=== PATIENT | female | born 1940 | race African-American/Black ===

== ENCOUNTER → 2016-10-11 | Outpatient (CLI) | payer MEDICARE, OTHER ==
[~2016-10-11] MED LIST: AMLODIPINE BESY10 MG PO; ASPIR-LOW81 MG PO; BENAZEPRIL HCL20 MG PO; BENAZEPRIL-HCT1 EAC1 PO; CALCIUM500 M3 PO; COLACE100 MG ORAL; DEXILANT PO; DEXILANT60 MG ORAL; DRY MOUTH PO; FENTANYL1 EACH TDERMAL; GABAPENTIN300 MG PO; GABAPENTIN600 MG ORAL; GLUCOPHAGE500 MG PO; JANUVIA25 MG ORAL; LACTULOSE20 GM/301 ORAL; LANTUS5 UNITS SUBQ; LINZESS145 MCG PO; LIPITOR20 MG ORAL; LOVASTATIN10 MG PO; MELOXICAM15 MG PO; METFORMIN HCL500 M1 ORAL; MIRALAX17 G2 ORAL; MYRBETRIQ25 MG PO; NORCO 10-325 T1 EACH PO; NOVOLOG100 UNIT/3 SUBQ; OMEPRAZOLE20 M2 ORAL; OMEPRAZOLE40 M1 ORAL; OS-CAL 500+D C1 EAC1 PO; OSTERA TABLET1 EACH PO; PRILOSEC40 MG PO; TRULICITY0.75 MG/0. SQ; URINARY MED; VITAMIN D22000 UNIT PO; VOLTAREN TOP; ZOFRAN4 MG ORAL
[2016-10-11 11:03] VITALS: BP 116/68
--- NOTE | 2016-10-11 15:36 | GI Progress Note ---
Assessment/Plan Problems: (1) Encounter for diagnostic endoscopy ICD Codes: Z01.818 - Encounter for other preprocedural examination SNOMED: 815501177, 994362074 (2) Colon polyps ICD Codes: K63.5 - Colon polyps SNOMED: 14012926 (3) GERD (gastroesophageal reflux disease) ICD Codes: K21.9 - Gastro-esophageal reflux disease without esophagitis SNOMED: 694899136 (4) Colon cancer ICD Codes: C18.9 - Malignant neoplasm of colon, unspecified SNOMED: 613344749 (5) Constipation ICD Codes: K59.00 - Constipation SNOMED: 43982413 (6) Biliary and pancreatic ductal dilatation (7) Invasive adenocarcinoma of ascending colon polyp Status: stable Status Narrative Seen with Dr. Worthington. Assessment/Plan EUS scheduled for 10/14/16. - NPO @ [place] day prior procedure acknowledged by patient. refill zofran cont omeprazole BID Subjective Gastrointestinal/Abdominal: Reports: abdominal pain, nausea Subjective GERD, stomach is sick all the time Objective Last 24 Hour Vital Signs Date Time Temp Pulse Resp B/P Pulse Ox O2 Delivery O2 Flow Rate FiO2 10/11/16 11:03 97.7 77 16 116/68 99 Weight (Pounds): 245 General Appearance: no apparent distress, alert, obese Cardiovascular: normal rate Respiratory/Chest: normal breath sounds, no respiratory distress Abdominal Exam: normal bowel sounds, non tender, soft Extremities: normal range of motion Objective DATE OF PROCEDURE: 07/04/2016 SURGEON: Ishaan Worthington M.D. INDICATION: Colon cancer followup. SUMMARY OF FINDINGS: 1. Four colonic polyps removed. 2. Diverticulosis. 3. Small internal hemorrhoids. RECOMMENDATIONS: Follow biopsy results. We recommend repeat colonoscopy. If it has not been five years yet then the patient would need another colonoscopy next year. If it has already been five years, would not need another colonoscopy in two years. Pathology >> no dysplasia Adriana Malin N.P. Oct 11, 2016 15:36
== END | disposition home or self-care (01) ==
LOC: PAN 10:38
DX: Z01.818 Encounter for other preprocedural examination (principal); K63.5 Polyp of colon; K21.9 Gastro-esophageal reflux disease without esophagitis; K59.00 Constipation, unspecified; C18.2 Malignant neoplasm of ascending colon; K57.90 Diverticulosis of intestine, part unspecified, without perforation or abscess without bleeding; K64.8 Other hemorrhoids
CPT/HCPCS: 99211

== ENCOUNTER → 2016-10-14 | Day surgery (SDC) | payer MEDICARE, OTHER ==
[2016-10-14] VITALS (8 sets, daily range): BP systolic 111–124; BP diastolic 59–67
[~2016-10-14] VITALS: Ht 175.3 cm; Wt 108.9 kg
[~2016-10-14] MED LIST changes: +Hydromorphone 0.5mg/0.5ml inj IVP PRN; +Lidocaine 1% MPF 10mg/ml 5ml ONE; +Norco 5mg/325mg tab ORAL PRN; +Propofol 10mg/ml 20ml IV ONE; +fentaNYL 100 mcg/2 mL IV PRN
--- NOTE | 2016-10-14 09:18 | Anethesia Preoperative Eval ---
Anesthesia Pre-op PMH/ROS General Date of Evaluation: Oct 14, 2016 Time of Evaluation: 09:00 Anesthesiologist: Tanya ASA Score: ASA 3 Mallampati Score Class I : Soft palate, uvula, fauces, pillars visible Class II: Soft palate, uvula, fauces visible Class III: Soft palate, base of uvula visible Class IV: Only hard plate visible Mallampati Classification: Class III Surgeon: Elin Diagnosis: PUD Surgical Procedure: EGD Family History: no anesthesia problems Allergies: Coded Allergies: ALENDRONATE SODIUM (Verified Allergy, Intermediate, "HEART PALPITATION", ) AMOXICILLIN (Unverified Allergy, Unknown, 12/02/15) NSAIDS (NON-STEROIDAL ANTI-INFLAMMA (Verified Allergy, Unknown, "HIVES", 06/11/14) SIMVASTATIN (Unverified Allergy, Unknown, 12/02/15) AMPICILLIN (Verified Adverse Reaction, Intermediate, "GETS YEAST INFECTION ", 09/05/12) Medications: see eMAR Past Medical History Cardiovascular: Reports: HTN Pulmonary: Denies: COPD, KAVITA, asthma, other Gastrointestinal/Genitourinary: Reports: GERD Neurologic/Psychiatric: Denies: CVA, TIA, dementia, depression/anxiety, other Endocrine: Reports: DM HEENT: Denies: [place] (L), [place] (R), cataract (L), cataract (R), glaucoma, other Hematology/Immune: Denies: DVT, anemia, bleeding disorder, other Musculoskeletal/Integumentary: Reports: DJD Anesthesia Pre-op Phys. Exam Physician Exam Last Vital Signs Date Time Temp Pulse Resp B/P Pulse Ox O2 Delivery O2 Flow Rate FiO2 10/14/16 07:17 98.2 78 20 111/63 99 Room Air Constitutional: NAD Neurologic: CN 2-12 intact Cardiovascular: RRR Airway Exam Mallampati Score: Class III ABISAI SHERWOOD M.D. Oct 14, 2016 09:18
--- NOTE | 2016-10-14 09:34 | Pre-Procedure Note/Attestation ---
Pre-Procedure Note/Attestation Complete Prior to Procedure Planned Procedure: not applicable Procedure Narrative: eus Indications for Procedure Pre-Operative Diagnosis: dilated CBD Attestation I attest that I discussed the nature of the procedure; its benefits; risks and complications; and alternatives (and the risks and benefits of such alternatives ), prior to the procedure, with the patient (or the patient's legal telephone service representative). I attest that, if there was a reasonable possibility of needing a blood transfusion, the patient (or the patient's legal telephone service representative) was given the [facility] standardized written summary, pursuant to the Earle Falguni Blood Safety Act ([place] Health and Safety Code # 1645, as amended). I attest that I re-evaluated the patient just prior to the surgery and that there has been no change in the patient's H&P, except as documented below: TERRA ANTHONY Oct 14, 2016 09:34
--- NOTE | 2016-10-14 09:35 | Short Stay Surgery H&P ---
History of Present Illness History of Present Illness Chief Complaint dilated CBD HPI Chago Avalos is a 76 year old female who was admitted on for Nausea,Abdominal Pain Patient History Allergies: Coded Allergies: ALENDRONATE SODIUM (Verified Allergy, Intermediate, "HEART PALPITATION", ) AMOXICILLIN (Unverified Allergy, Unknown, 12/02/15) NSAIDS (NON-STEROIDAL ANTI-INFLAMMA (Verified Allergy, Unknown, "HIVES", 06/11/14) SIMVASTATIN (Unverified Allergy, Unknown, 12/02/15) AMPICILLIN (Verified Adverse Reaction, Intermediate, "GETS YEAST INFECTION ", 09/05/12) PAST MEDICAL HISTORY: (1) Invasive adenocarcinoma of ascending colon polyp (2) Biliary and pancreatic ductal dilatation (3) GERD (gastroesophageal reflux disease) (4) Constipation (5) Diabetes (6) Hypotension Past Surgeries: Social History: Medication History Scheduled Aspirin* (Aspir-Low*), 81 MG PO DAILY, (Reported) Benazepril/Hydrochlorothiazide 20-12.5 Mg Tab (Benazepril-Hctz 20-12.5 Mg Tab), 1 TAB PO DAILY, (Reported) Dulaglutide (Trulicity), Unknown Dose SQ QWEEK, (Reported) Fentanyl 25MCG Patch* (Fentanyl 25MCG Patch*), 1 PATCH TDERMAL EVERY 72 HOURS, ( Reported) Gabapentin* (Gabapentin*), 600 MG ORAL THREE TIMES A DAY, (Reported) Insulin Aspart* (Novolog*), 15 UNIT SUBQ TID, (Reported) Insulin Glargine (Lantus), 42 UNIT SUBQ DAILY, (Reported) Linaclotide (Linzess), 145 MCG PO PRN, (Reported) Metformin Hcl* (Metformin Hcl*), 500 MG ORAL TWICE A DAY, (Reported) Omeprazole (Omeprazole), 20 MG ORAL DAILY, (Reported) Scheduled PRN Hydrocodone Bit/Acetaminophen 10-325* ([place] 10-325*), 1 TAB PO Q6 PRN, ( Reported) Ondansetron (Zofran), 4 MG ORAL Q8H PRN for Nausea & Vomiting, (Reported) Miscellaneous Medications Ergocalciferol (Vitamin D2) (Vitamin D2), 50,000 UNIT PO, (Reported) [urinary med ], (Reported) Discontinued Medications Atorvastatin Calcium* (Lipitor*), 20 MG ORAL BEDTIME, (Reported) Discontinued Reason: Pt stopped taking med Calcium Carbonate (Calcium), 500 MG PO DAILY, (Reported) Discontinued Reason: Pt stopped taking med Review of Systems Cardiovascular: Reports: no symptoms Respiratory: Reports: no symptoms Skeletal: Reports: no symptoms Gastrointestinal: Reports: no symptoms Genitourinary: Reports: no symptoms Neurologic: Reports: no symptoms Endocrine: Reports: no symptoms Hematologic: Reports: no symptoms Physical Exam Vital Signs Last Vital Signs Date Time Temp Pulse Resp B/P Pulse Ox O2 Delivery O2 Flow Rate FiO2 10/14/16 07:17 98.2 78 20 111/63 99 Room Air Skin: normal HENT: normal Heart: normal Lungs: normal Abdomen: normal Extremities: normal Plan Plan of Care eus Final Diagnosis: Attestation Are the patient's medical conditions optimized for surgery? Attestation Response: yes TERRA ANTHONY Oct 14, 2016 09:35
--- NOTE | 2016-10-14 10:03 | Endoscopy Procedure Note ---
Endoscopy Procedure Note Indication for Procedure: dilated CBD Procedures Performed: other - EUS Operative Findings/Diagnosis: same Specimen: none Pt Tolerated Procedure Well: Yes Estimated Blood Loss: none Anesthesiologist: neris Anesthesia: MAC Implant(s) used?: No 50 yrs or older w/o bx or poly: Not Applicable 10yrs. F/U not recommended: Not Applicable TERRA ANTHONY Oct 14, 2016 10:03
--- NOTE | 2016-10-14 10:04 | Immediate Post-Op Evaluation ---
Immediate Post-Op Evalulation Immediate Post-Op Evalulation Procedure: EUS Date of Evaluation: Oct 14, 2016 Time of Evaluation: 10:15 IV Fluids: 500 Blood Products: 0 Estimated Blood Loss: 0 Urinary Output: 0 Blood Pressure Systolic: 150 Blood Pressure Diastolic: 80 Pulse Rate: 80 Respiratory Rate: 20 O2 Sat by Pulse Oximetry: 99 Temperature (Fahrenheit): 98 Pain Score (1-10): 2 Nausea: No Complications na Patient Status: awake Hydration Status: adequate Given Within 1 Hr of Incision: ABISAI Max M.D. Oct 14, 2016 10:04
--- NOTE | 2016-10-14 10:07 | 48 Hour Post Anesthesia Eval ---
Post Anesthesia Evaluation Procedure: EUS Date of Evaluation: Oct 14, 2016 Time of Evaluation: 11:15 Blood Pressure Systolic: 155 0: 80 Pulse Rate: 80 Respiratory Rate: 20 Temperature (Fahrenheit): 98 O2 Sat by Pulse Oximetry: 97 Airway: patent Nausea: No Pain Intensity: 2 Hydration Status: adequate Cardiopulmonary Status: stable Mental Status/LOC: patient returned to baseline Follow-up Care/Observations: na Post-Anesthesia Complications: na Follow-up care needed: N/A ABISAI SHERWOOD M.D. Oct 14, 2016 10:07
--- NOTE | 2016-10-14 17:38 | Procedure Note ---
DATE OF PROCEDURE: 10/14/2016 SURGEON: Ishaan Worthington M.D. REFERRING PHYSICIAN: Marita Medina M.D. PROCEDURE: Endoscopic ultrasound. ANESTHESIOLOGIST: Satya Martínez M.D. INSTRUMENT: Olympus adult flexible EUS scope. INDICATION: Dilated common bile duct, rule out ampullary mass. The procedure, risks, benefits, and possible consequences, including hemorrhage, aspiration, perforation and infection, and alternative treatments, were explained to the patient/legal guardian by Dr. Ishaan Worthington and the patient/legal guardian understood and accepted these risks. DESCRIPTION OF PROCEDURE: After informed consent was obtained and the patient was adequately sedated, Olympus EUS scope was advanced from mouth into the second portion of the duodenum, and pancreatic parenchyma was carefully examined through the gastroduodenal mucosa. Starting the scanning at GE junction, the patient had no evidence of any celiac axis lymphadenopathy. Pancreatic parenchyma looked mildly atrophic in the body and tail without any pancreatic duct dilatation. Actually, pancreatic duct was very small in the body and the tail. Then, the scope was advanced to the duodenal bulb and second portion of the duodenum. The patient is post cholecystectomy. Common bile duct is significantly dilated to about 1.8 cm without any obvious stone or mass at the ampulla. Pancreatic duct measured about 3.5 mm at the ampulla. Again, no obvious ampullary mass was seen. The patient tolerated the procedure well without any complications. SUMMARY OF FINDINGS: Dilated common bile duct to about 1.8 cm without any papillary mass suspicious for papillary stenosis without any significant dilation of pancreatic duct. The patient is post cholecystectomy. RECOMMENDATIONS: The patient has biliary colic symptoms. We will recommend ERCP. I want to thank, Dr. Marita Medina, for this kind referral. Ishaan Worthington M.D. DR: YUMIKO JOB#: [id number] CC: Marita Medina M.D.; Fax#: [phone]
--- NOTE | 2016-10-18 11:39 | Cardiology Report ---
APPROVED REPORT EKG Measurement Heart [id number] Normal sinus rhythm Inferior infarct, age undetermined Abnormal ECG
== END | disposition home or self-care (01) ==
LOC: GAS 06:22
DX: K83.8 Other specified diseases of biliary tract (principal); K21.9 Gastro-esophageal reflux disease without esophagitis; E11.9 Type 2 diabetes mellitus without complications; Z79.4 Long term (current) use of insulin; Z79.84 Long term (current) use of oral hypoglycemic drugs; I10 Essential (primary) hypertension; M19.90 Unspecified osteoarthritis, unspecified site; Z90.49 Acquired absence of other specified parts of digestive tract; Z79.82 Long term (current) use of aspirin; Z79.891 Long term (current) use of opiate analgesic; Z79.899 Other long term (current) drug therapy; Z88.1 Allergy status to other antibiotic agents; Z88.6 Allergy status to analgesic agent; Z88.0 Allergy status to penicillin; Z88.8 Allergy status to other drugs, medicaments and biological substances; Z85.038 Personal history of other malignant neoplasm of large intestine
CPT/HCPCS: 43237; 82962; 93005; J2704; 94003; 94150

== ENCOUNTER → 2016-10-26 | Outpatient (CLI) | payer MEDICARE, OTHER ==
[~2016-10-26] MED LIST changes: -Hydromorphone 0.5mg/0.5ml inj IVP PRN; -Lidocaine 1% MPF 10mg/ml 5ml ONE; -Norco 5mg/325mg tab ORAL PRN; -Propofol 10mg/ml 20ml IV ONE; -fentaNYL 100 mcg/2 mL IV PRN
[2016-10-26 14:20] VITALS: BP 97/66
--- NOTE | 2016-10-26 14:51 | General Progress Note ---
Assessment/Plan Problem List: (1) Biliary and pancreatic ductal dilatation (2) Invasive adenocarcinoma of ascending colon polyp (3) GERD (gastroesophageal reflux disease) ICD Codes: K21.9 - Gastro-esophageal reflux disease without esophagitis SNOMED: 095845561 (4) Diabetes ICD Codes: E11.9 - Diabetes SNOMED: 30813311 (5) Constipation ICD Codes: K59.00 - Constipation SNOMED: 62079982 (6) Colon polyps ICD Codes: K63.5 - Colon polyps SNOMED: 45066521 (7) Nausea ICD Codes: R11.0 - Nausea SNOMED: 619965492 Assessment/Plan patient was offered ERCP but she wants to think about it cont linoneils rtc prn Subjective ROS Limited/Unobtainable: Yes Allergies: Coded Allergies: ALENDRONATE SODIUM (Verified Allergy, Intermediate, "HEART PALPITATION", ) AMOXICILLIN (Unverified Allergy, Unknown, 12/02/15) NSAIDS (NON-STEROIDAL ANTI-INFLAMMA (Verified Allergy, Unknown, "HIVES", 06/11/14) SIMVASTATIN (Unverified Allergy, Unknown, 12/02/15) AMPICILLIN (Verified Adverse Reaction, Intermediate, "GETS YEAST INFECTION ", 09/05/12) Subjective c/o nausea Objective Last 24 Hour Vital Signs Date Time Temp Pulse Resp B/P Pulse Ox O2 Delivery O2 Flow Rate FiO2 10/26/16 14:20 98.8 85 16 97/66 General Appearance: alert EENT: normal ENT inspection Neck: supple Cardiovascular: normal rate Respiratory/Chest: lungs clear Abdomen: normal bowel sounds, non tender, soft Extremities: non-tender TERRA ANTHONY Oct 26, 2016 14:51
== END | disposition home or self-care (01) ==
LOC: PAN 14:03
DX: K59.00 Constipation, unspecified (principal); K63.5 Polyp of colon; R11.0 Nausea; E11.9 Type 2 diabetes mellitus without complications; K21.9 Gastro-esophageal reflux disease without esophagitis; C18.2 Malignant neoplasm of ascending colon; K86.89 Other specified diseases of pancreas; Z88.6 Allergy status to analgesic agent; Z88.8 Allergy status to other drugs, medicaments and biological substances
CPT/HCPCS: 99211

== ENCOUNTER 2017-05-15 06:57 | Day surgery (SDC) | payer MEDICARE, OTHER ==
[2017-05-15] VITALS (8 sets, daily range): BP systolic 97–122; BP diastolic 44–68
[~2017-05-15] VITALS: Ht 175.3 cm; Wt 107.5 kg
--- NOTE | 2017-05-15 08:29 | Anethesia Preoperative Eval ---
Anesthesia Pre-op PMH/ROS General Date of Evaluation: May 15, 2017 Time of Evaluation: 08:25 Anesthesiologist: Corina ASA Score: ASA 3 Mallampati Score Class I : Soft palate, uvula, fauces, pillars visible Class II: Soft palate, uvula, fauces visible Class III: Soft palate, base of uvula visible Class IV: Only hard plate visible Mallampati Classification: Class III Surgeon: Elin Diagnosis: Colon CA screening Surgical Procedure: Colooscopy Anesthesia History: none Family History: no anesthesia problems Allergies: Coded Allergies: AMOXICILLIN (Verified Allergy, Severe, 05/15/17) HIVES NSAIDS (NON-STEROIDAL ANTI-INFLAMMA (Verified Allergy, Severe, "HIVES", ) ALENDRONATE SODIUM (Verified Allergy, Intermediate, "HEART PALPITATION", ) AMPICILLIN (Verified Adverse Reaction, Severe, "GETS YEAST INFECTION", ) SIMVASTATIN (Verified Adverse Reaction, Mild, 05/15/17) shoulder started to hurt Medications: see eMAR Past Medical History Cardiovascular: Reports: HTN, Denies: CAD, [place], valve dz, arrhythmia, other Pulmonary: Denies: asthma, COPD, KAVITA, other Gastrointestinal/Genitourinary: Reports: GERD, Denies: CRI, ESRD, other Neurologic/Psychiatric: Denies: dementia, CVA, depression/anxiety, TIA, other Endocrine: Reports: DM, Denies: hypothyroidism, steroids, other HEENT: Denies: cataract (L), cataract (R), glaucoma, [place] (L), [place] (R), other Hematology/Immune: Denies: anemia, DVT, bleeding disorder, other Musculoskeletal/Integumentary: Denies: OA, RA, DJD, DDD, edema, other Other: obesity PMH Narrative: as above PSxH Narrative: see H&P Anesthesia Pre-op Phys. Exam Physician Exam Last Vital Signs Date Time Temp Pulse Resp B/P (MAP) Pulse Ox O2 Delivery O2 Flow Rate FiO2 05/15/17 07:51 97.3 78 17 104/55 100 Room Air Constitutional: NAD Neurologic: CN 2-12 intact Cardiovascular: RRR, no M/R/G Respiratory: CTA Gastrointestinal: other - obesity Airway Exam Mallampati Score: Class III MO: limited Neck: stiff ROM: limited Teeth: missing Dentures: no upper, no lower Anesthesia Pre-op A/P Labs see chart Risk Assessment & Plan Assessment: ASA 3 Plan: MAC Status Change Before Surgery: No Pre-Antibiotics Drug: none OMAYRA PEARSON M.D. May 15, 2017 08:29
[2017-05-15] MEDS ORDERED: fentaNYL 100 mcg/2 mL IV ONE (08:40)
[2017-05-15] MEDS ORDERED: LR 1000ml ONE (08:40)
[2017-05-15] MEDS ORDERED: Midazolam 2mg/2ml Inj ONE (08:40)
[2017-05-15] MEDS ORDERED: Propofol 200mg/20ml IV ONE (08:40)
[2017-05-15] MEDS ORDERED: LR 1000ml 1,000 ML IVLG SCH (09:03)
--- NOTE | 2017-05-15 09:03 | Pre-Procedure Note/Attestation ---
Pre-Procedure Note/Attestation Complete Prior to Procedure Planned Procedure: not applicable Procedure Narrative: colonoscopy Indications for Procedure Pre-Operative Diagnosis: colon cancer Attestation I attest that I discussed the nature of the procedure; its benefits; risks and complications; and alternatives (and the risks and benefits of such alternatives ), prior to the procedure, with the patient (or the patient's legal textile machinery sales representative). I attest that, if there was a reasonable possibility of needing a blood transfusion, the patient (or the patient's legal textile machinery sales representative) was given the [facility] standardized written summary, pursuant to the Earle Falguni Blood Safety Act ([place] Health and Safety Code # 1645, as amended). I attest that I re-evaluated the patient just prior to the surgery and that there has been no change in the patient's H&P, except as documented below: TERRA ANTHONY May 15, 2017 09:03
--- NOTE | 2017-05-15 09:04 | Short Stay Surgery H&P ---
History of Present Illness History of Present Illness Chief Complaint see office note HPI Chago Avalos is a 77 year old female who was admitted on for Hx Of Colon Cancer Patient History Allergies: Coded Allergies: AMOXICILLIN (Verified Allergy, Severe, 05/15/17) HIVES NSAIDS (NON-STEROIDAL ANTI-INFLAMMA (Verified Allergy, Severe, "HIVES", ) ALENDRONATE SODIUM (Verified Allergy, Intermediate, "HEART PALPITATION", ) AMPICILLIN (Verified Adverse Reaction, Severe, "GETS YEAST INFECTION", ) SIMVASTATIN (Verified Adverse Reaction, Mild, 05/15/17) shoulder started to hurt PAST MEDICAL HISTORY: Past Surgeries: Social History: Medication History Scheduled Aspirin* (Aspir-Low*), 81 MG PO DAILY, (Reported) Benazepril/Hydrochlorothiazide 20-12.5 Mg Tab (Benazepril-Hctz 20-12.5 Mg Tab), 1 TAB PO DAILY, (Reported) Dulaglutide (Trulicity), Unknown Dose SQ QWEEK, (Reported) Fentanyl 25MCG Patch* (Fentanyl 25MCG Patch*), 1 PATCH TDERMAL EVERY 72 HOURS, ( Reported) Gabapentin* (Gabapentin*), 600 MG ORAL THREE TIMES A DAY, (Reported) Insulin Aspart* (Novolog*), 15 UNIT SUBQ TID, (Reported) Insulin Glargine (Lantus), 42 UNIT SUBQ DAILY, (Reported) Linaclotide (Linzess), 145 MCG PO PRN, (Reported) Meloxicam* (Meloxicam*), Unknown Dose PO DAILY, (Reported) Metformin Hcl* (Metformin Hcl*), 500 MG ORAL TWICE A DAY, (Reported) Mirabegron (Myrbetriq), Unknown Dose PO DAILY, (Reported) Omeprazole (Omeprazole), 20 MG ORAL DAILY, (Reported) Scheduled PRN Hydrocodone Bit/Acetaminophen 10-325* ([place] 10-325*), 1 TAB PO Q6 PRN, ( Reported) Ondansetron (Zofran), 4 MG ORAL Q8H PRN for Nausea & Vomiting, (Reported) Miscellaneous Medications Ergocalciferol (Vitamin D2) (Vitamin D2), 50,000 UNIT PO, (Reported) Physical Exam Vital Signs Last Vital Signs Date Time Temp Pulse Resp B/P (MAP) Pulse Ox O2 Delivery O2 Flow Rate FiO2 05/15/17 07:51 97.3 78 17 104/55 100 Room Air Plan Attestation Are the patient's medical conditions optimized for surgery? TERRA ANTHONY May 15, 2017 09:04
[2017-05-15] MEDS ORDERED: fentaNYL 100 mcg/2 mL IV PRN (09:15)
[2017-05-15] MEDS ORDERED: DiphenhydrAMINE 50mg/ml Inj IVP PRN (09:15)
--- NOTE | 2017-05-15 09:24 | Endoscopy Procedure Note ---
Endoscopy Procedure Note Indication for Procedure: h/o colon cancer Procedures Performed: colonoscopy Operative Findings/Diagnosis: 2 polyps Specimen: yes Pt Tolerated Procedure Well: Yes Estimated Blood Loss: none Anesthesiologist: susie Anesthesia: MAC Implant(s) used?: No 50 yrs or older w/o bx or poly: No 10yrs. F/U not recommended: Yes If not recommended, why?: Above average risk 10 yrs. F/U needed: Yes 18 years or older w/prev. colo: Yes <3yrs. since last colonoscopy: Yes Med reason:<3 yrs.: colon cancer TERRA ANTHONY May 15, 2017 09:24
--- NOTE | 2017-05-15 09:32 | Immediate Post-Op Evaluation ---
Immediate Post-Op Evalulation Immediate Post-Op Evalulation Procedure: Colonoscopy Polipectomy Date of Evaluation: May 15, 2017 Time of Evaluation: 09:31 IV Fluids: 600 Blood Products: none Estimated Blood Loss: none Urinary Output: none Blood Pressure Systolic: 114 Blood Pressure Diastolic: 65 Pulse Rate: 70 Respiratory Rate: 20 O2 Sat by Pulse Oximetry: 99 Temperature (Fahrenheit): 97.6 Pain Score (1-10): 2 Nausea: No Vomiting: No Complications none Patient Status: awake, patent, none Hydration Status: adequate OMAYRA PEARSON M.D. May 15, 2017 09:32
--- NOTE | 2017-05-15 10:01 | 48 Hour Post Anesthesia Eval ---
Post Anesthesia Evaluation Procedure: Colonoscopy Polipectomy Date of Evaluation: May 15, 2017 Time of Evaluation: 10:00 Blood Pressure Systolic: 121 0: 68 Pulse Rate: 66 Respiratory Rate: 20 Temperature (Fahrenheit): 97.6 O2 Sat by Pulse Oximetry: 98 Airway: patent Nausea: No Vomiting: No Pain Intensity: 2 Hydration Status: adequate Cardiopulmonary Status: stable Mental Status/LOC: patient returned to baseline Follow-up Care/Observations: n/a Post-Anesthesia Complications: none Follow-up care needed: ready to discharge OMAYRA PEARSON M.D. May 15, 2017 10:01
--- NOTE | 2017-05-15 16:30 | Procedure Note ---
DATE OF PROCEDURE: 05/15/2017 PROCEDURE: Colonoscopy with snare polypectomy and biopsy. SURGEON: Ishaan Worthington M.D. ANESTHESIOLOGIST: Christian Arriaga M.D. INSTRUMENT: Olympus adult flexible colonoscope. INDICATION: Followup colon cancer. REASON FOR PROCEDURE: The procedure, risks, benefits, and possible consequences, including hemorrhage, aspiration, perforation and infection, and alternative treatments, were explained to the patient/legal guardian by Dr. Ishaan Worthington and the patient/legal guardian understood and accepted these risks. PROCEDURE: After informed consent was obtained and the patient was adequately sedated, first rectal exam was performed, which was normal. Then, the scope was advanced from the rectum into the anastomosis. Quality of prep was very good. The patient had one polyp in the transverse colon, which was removed with cold biopsy forceps technique. This polyp measured roughly about 4 mm. Another polyp was also further down in the transverse colon. This polyp was flat measured roughly about 6 mm, removed with the cold snare polypectomy technique. There was no more polyps in this colonoscopy examination. There was numerous diverticula throughout the colon. Retroflexion of rectum showed evidence of internal hemorrhoids. SUMMARY FINDINGS: 1. Two colonic polyps removed, see above for details. 2. Diverticulosis. 3. Internal hemorrhoids. RECOMMENDATIONS: 1. Followup biopsy results. 2. Recommend repeat colonoscopy in three years. I want to thank, Dr. Marita Medina, for this kind referral. Ishaan Worthington M.D. DR: ADRIANNA JOB#: [id number] CC: Marita Medina M.D.; Fax#: [phone]
--- NOTE | 2017-05-17 16:12 | Cardiology Report ---
APPROVED REPORT EKG Measurement Heart [id number] ID [id number] Normal sinus rhythm Normal ECG
== END 2017-05-15 11:20 | disposition home or self-care (01) ==
LOC: GAS 06:57
DX: K63.5 Polyp of colon (principal); K57.90 Diverticulosis of intestine, part unspecified, without perforation or abscess without bleeding; K64.8 Other hemorrhoids; D12.3 Benign neoplasm of transverse colon; I10 Essential (primary) hypertension; K21.9 Gastro-esophageal reflux disease without esophagitis; E11.9 Type 2 diabetes mellitus without complications; E66.9 Obesity, unspecified; Z68.35 Body mass index [BMI] 35.0-35.9, adult; Z88.8 Allergy status to other drugs, medicaments and biological substances; Z85.038 Personal history of other malignant neoplasm of large intestine; Z79.82 Long term (current) use of aspirin; Z79.4 Long term (current) use of insulin; Z79.84 Long term (current) use of oral hypoglycemic drugs
CPT/HCPCS: 45380; 82962; 93005; J2250; J2704; J3010; J7120; 94003; 94150

== ENCOUNTER 2017-06-13 12:56 | Outpatient (CLI) | payer MEDICARE, OTHER ==
--- NOTE | 2017-06-13 13:56 | GI Progress Note ---
Assessment/Plan Problems: (1) Colon polyps ICD Codes: K63.5 - Colon polyps SNOMED: 27002108 (2) Diabetes ICD Codes: E11.9 - Diabetes SNOMED: 00250658 (3) Constipation ICD Codes: K59.00 - Constipation SNOMED: 17337166 Status: stable Status Narrative Seen with Dr. Worthington. Assessment/Plan colonoscopy SUMMARY FINDINGS reviewed with patient: 1. Two colonic polyps removed, see above for details. 2. Diverticulosis. 3. Internal hemorrhoids. RECOMMENDATIONS: 1. Followup biopsy results. >> unremarkable 2. Recommend repeat colonoscopy in three years. Subjective Subjective Denies any GI symptoms Objective T 98 BP 106/55 P 84, 96 RA General Appearance: WD/WN, no apparent distress, alert Cardiovascular: normal rate Respiratory/Chest: normal breath sounds, no respiratory distress Abdominal Exam: normal bowel sounds, non tender, soft Extremities: normal range of motion, non-tender Adriana Malin N.P. Jun 13, 2017 13:56
[2017-06-13 15:08] VITALS: BP 106/55
== END 2017-06-13 13:50 | disposition home or self-care (01) ==
LOC: PAN 12:56
DX: K63.5 Polyp of colon (principal); E11.9 Type 2 diabetes mellitus without complications; K59.00 Constipation, unspecified; K57.90 Diverticulosis of intestine, part unspecified, without perforation or abscess without bleeding; K64.8 Other hemorrhoids
CPT/HCPCS: 99211

== ENCOUNTER 2018-06-28 13:00 | Outpatient (CLI) | payer MEDICARE, OTHER ==
[2018-06-28 13:25] VITALS: BP 107/67
[2018-06-28] MEDS ORDERED: ZOFRAN ODT8 MG ORAL (13:29)
[2018-06-28] MEDS ORDERED: CYMBALTA30 MG ORAL (13:31)
--- NOTE | 2018-06-28 16:06 | GI Progress Note ---
Assessment/Plan Problems: (1) Biliary and pancreatic ductal dilatation (2) GERD (gastroesophageal reflux disease) ICD Codes: K21.9 - Gastro-esophageal reflux disease without esophagitis SNOMED: 166606553 (3) Nausea ICD Codes: R11.0 - Nausea SNOMED: 431320438 (4) Constipation ICD Codes: K59.00 - Constipation SNOMED: 76017052 Status: stable Status Narrative Discussed with Dr. Worthington. Assessment/Plan cont ppi zofran prn RTC prn repeat colonoscopy 2019 The patient was seen and examined at bedside and all new and available data was reviewed in the patients chart. I agree with the above findings, impression and plan. (Patient seen earlier today. Signature stamp does not reflect patient encounter time.). - Ishaan Worthington MD Subjective Subjective abdominal pain, RUQ >> mild discomfort Nausea, taken zofran 8mgx2. States peaches/ice cream ease the nausea. Objective Last 24 Hour Vital Signs Date Time Temp Pulse Resp B/P (MAP) Pulse Ox O2 Delivery O2 Flow Rate FiO2 06/28/18 13:25 98.3 93 18 107/67 97 General Appearance: WD/WN, no apparent distress, alert Cardiovascular: normal rate Respiratory/Chest: normal breath sounds, no respiratory distress Abdominal Exam: normal bowel sounds, non tender, soft Extremities: normal range of motion, non-tender Shmuel Malin [employer] ENGINEER Jun 28, 2018 16:06
== END 2018-06-28 13:30 | disposition home or self-care (01) ==
LOC: PAN 13:00
DX: K21.9 Gastro-esophageal reflux disease without esophagitis (principal); K59.00 Constipation, unspecified; K86.89 Other specified diseases of pancreas
CPT/HCPCS: 99212

== ENCOUNTER 2019-01-08 09:10 | Outpatient (CLI) | payer MEDICARE, OTHER ==
[~2019-01-08 09:10] MED LIST changes: +CYMBALTA30 MG ORAL; +ZOFRAN ODT8 MG ORAL
--- NOTE | 2019-01-08 10:02 | General Progress Note ---
Assessment/Plan Problem List: (1) Biliary and pancreatic ductal dilatation (2) GERD (gastroesophageal reflux disease) ICD Codes: K21.9 - Gastro-esophageal reflux disease without esophagitis SNOMED: 930915287 (3) Constipation ICD Codes: K59.00 - Constipation SNOMED: 84445685 (4) Diabetes ICD Codes: E11.9 - Diabetes SNOMED: 06407514 (5) Colon polyps ICD Codes: K63.5 - Colon polyps SNOMED: 26819232 (6) Invasive adenocarcinoma of ascending colon polyp (7) HTN (hypertension) ICD Codes: I10 - HTN (hypertension) SNOMED: 25491716 (8) SIBO Assessment/Plan: trial of Xifaxan repeat colon in Apr Subjective ROS Limited/Unobtainable: Yes Allergies: Coded Allergies: AMOXICILLIN (Verified Allergy, Severe, 05/15/17) HIVES NSAIDS (NON-STEROIDAL ANTI-INFLAMMA (Verified Allergy, Severe, "HIVES", ) ALENDRONATE SODIUM (Verified Allergy, Intermediate, "HEART PALPITATION", ) AMPICILLIN (Verified Adverse Reaction, Severe, "GETS YEAST INFECTION", ) SIMVASTATIN (Verified Adverse Reaction, Mild, 05/15/17) shoulder started to hurt Objective General Appearance: alert EENT: normal ENT inspection Neck: supple Cardiovascular: normal rate Respiratory/Chest: lungs clear Abdomen: normal bowel sounds, non tender, soft Extremities: non-tender Ishaan Worthington MD Jan 08, 2019 10:02
[2019-01-08 13:33] VITALS: BP 122/70
== END 2019-01-08 11:10 | disposition home or self-care (01) ==
LOC: PAN 09:10
DX: K21.9 Gastro-esophageal reflux disease without esophagitis (principal); K59.00 Constipation, unspecified; E11.9 Type 2 diabetes mellitus without complications; K63.5 Polyp of colon; I10 Essential (primary) hypertension; K56.609 Unspecified intestinal obstruction, unspecified as to partial versus complete obstruction; K86.89 Other specified diseases of pancreas
CPT/HCPCS: 99212

== ENCOUNTER 2019-02-07 12:59 | Outpatient (CLI) | payer MEDICARE, OTHER ==
[2019-02-07 13:20] VITALS: BP 112/65
--- NOTE | 2019-02-07 13:54 | General Progress Note ---
Assessment/Plan Problem List: (1) SIBO (2) Biliary and pancreatic ductal dilatation (3) Invasive adenocarcinoma of ascending colon polyp (4) Colon polyps ICD Codes: K63.5 - Colon polyps SNOMED: 63607285 (5) HTN (hypertension) ICD Codes: I10 - HTN (hypertension) SNOMED: 51733032 (6) GERD (gastroesophageal reflux disease) ICD Codes: K21.9 - Gastro-esophageal reflux disease without esophagitis SNOMED: 324784109 (7) Diabetes ICD Codes: E11.9 - Diabetes SNOMED: 91034826 Assessment/Plan: repeat colon in april xifaxan nicholasan Subjective ROS Limited/Unobtainable: Yes Allergies: Coded Allergies: AMOXICILLIN (Verified Allergy, Severe, 05/15/17) HIVES NSAIDS (NON-STEROIDAL ANTI-INFLAMMA (Verified Allergy, Severe, "HIVES", ) ALENDRONATE SODIUM (Verified Allergy, Intermediate, "HEART PALPITATION", ) AMPICILLIN (Verified Adverse Reaction, Severe, "GETS YEAST INFECTION", ) SIMVASTATIN (Verified Adverse Reaction, Mild, 05/15/17) shoulder started to hurt Objective General Appearance: alert EENT: normal ENT inspection Neck: supple Cardiovascular: normal rate Respiratory/Chest: lungs clear Abdomen: normal bowel sounds, non tender, soft Extremities: non-tender Ishaan Worthington MD Feb 07, 2019 13:54
== END 2019-02-07 16:01 | disposition home or self-care (01) ==
LOC: PAN 12:59
DX: K56.609 Unspecified intestinal obstruction, unspecified as to partial versus complete obstruction (principal); C18.9 Malignant neoplasm of colon, unspecified; K63.5 Polyp of colon; I10 Essential (primary) hypertension; K21.9 Gastro-esophageal reflux disease without esophagitis; E11.9 Type 2 diabetes mellitus without complications; Z88.6 Allergy status to analgesic agent; Z88.0 Allergy status to penicillin
CPT/HCPCS: 99212

== ENCOUNTER 2019-03-01 06:55 | Day surgery (SDC) | payer MEDICARE, OTHER ==
[~2019-03-01] VITALS: Ht 172.7 cm; Wt 101.2 kg
[2019-03-01] VITALS (8 sets, daily range): BP systolic 107–137; BP diastolic 57–97
[2019-03-01] MEDS ORDERED: XIFAXAN550 MG ORAL (08:09)
[2019-03-01] MEDS ORDERED: VITAMIN D2 PO (08:09)
[2019-03-01] MEDS ORDERED: LINZESS145 MCG PO (08:09)
[2019-03-01] MEDS ORDERED: ATORVASTATIN CA20 MG ORAL (08:09)
[2019-03-01] MEDS ORDERED: FARXIGA5 MG PO (08:09)
[2019-03-01] MEDS ORDERED: MIRALAX17 G2 ORAL (08:09)
[2019-03-01] MEDS ORDERED: PILOCARPINE HCL5 M1 PO (08:09)
--- NOTE | 2019-03-01 08:54 | Pre-Procedure Note/Attestation ---
Pre-Procedure Note/Attestation Complete Prior to Procedure Planned Procedure: not applicable Procedure Narrative: egd Indications for Procedure Pre-Operative Diagnosis: gerd Attestation I attest that I discussed the nature of the procedure; its benefits; risks and complications; and alternatives (and the risks and benefits of such alternatives ), prior to the procedure, with the patient (or the patient's legal inbound customer service representative). I attest that, if there was a reasonable possibility of needing a blood transfusion, the patient (or the patient's legal inbound customer service representative) was given the [facility] standardized written summary, pursuant to the [place] Blood Safety Act ([place] Health and Safety Code # 1645, as amended). I attest that I re-evaluated the patient just prior to the surgery and that there has been no change in the patient's H&P, except as documented below: Ishaan Worthington MD Mar 01, 2019 08:54
--- NOTE | 2019-03-01 08:54 | Short Stay Surgery H&P ---
History of Present Illness History of Present Illness Chief Complaint see recent office note HPI Chago Avalos is a 78 year old female who was admitted on for Colon Cancer Patient History Allergies: Coded Allergies: AMOXICILLIN (Verified Allergy, Severe, 05/15/17) HIVES NSAIDS (NON-STEROIDAL ANTI-INFLAMMA (Verified Allergy, Severe, "HIVES", ) ALENDRONATE SODIUM (Verified Allergy, Intermediate, "HEART PALPITATION", ) AMPICILLIN (Verified Adverse Reaction, Severe, "GETS YEAST INFECTION", ) SIMVASTATIN (Verified Adverse Reaction, Mild, 05/15/17) shoulder started to hurt Medication History Scheduled Aspirin* (Aspir-Low*), 81 MG PO DAILY, (Reported) Atorvastatin Calcium* (Atorvastatin Calcium*), 20 MG ORAL BEDTIME, (Reported) Benazepril/Hydrochlorothiazide 20-12.5 Mg Tab (Benazepril-Hctz 20-12.5 Mg Tab), 1 TAB PO DAILY, (Reported) Dapagliflozin Propanediol (Farxiga), 5 MG PO DA, (Reported) Dulaglutide (Trulicity), Unknown Dose SQ QWEEK, (Reported) Duloxetine Hcl* (Cymbalta*), 30 MG ORAL BID, (Reported) Fentanyl 25MCG Patch* (Fentanyl 25MCG Patch*), 1 PATCH TDERMAL EVERY 72 HOURS, ( Reported) Gabapentin* (Gabapentin*), 600 MG ORAL THREE TIMES A DAY, (Reported) Insulin Aspart* (Novolog*), 15 UNIT SUBQ TID, (Reported) Insulin Glargine (Lantus), 40 UNIT SUBQ DAILY, (Reported) Linaclotide (Linzess), 145 MCG PO NE, (Reported) Metformin Hcl* (Metformin Hcl*), 500 MG ORAL TWICE A DAY, (Reported) Mirabegron (Myrbetriq), Unknown Dose PO DAILY, (Reported) Omeprazole (Omeprazole), 20 MG ORAL BID, (Reported) Pilocarpine Hcl (Pilocarpine Hcl), 10 MG PO DA, (Reported) Polyethylene Glycol 3350* (Miralax*), 17 GM ORAL , (Reported) Rifaximin* (Xifaxan*), 550 MG ORAL TWICE A DAY, (Reported) [Vitamin D2], 50,000 PO ONCE A WEEK, (Reported) Scheduled PRN Hydrocodone Bit/Acetaminophen 10-325* ([place] 10-325*), 1 TAB PO Q6 PRN, ( Reported) Ondansetron Odt* (Zofran Odt*), 8 MG ORAL Q12HR PRN for Nausea & Vomiting, ( Reported) Physical Exam Vital Signs Last Vital Signs Date Time Temp Pulse Resp B/P (MAP) Pulse Ox O2 Delivery O2 Flow Rate FiO2 03/01/19 07:49 Room Air 03/01/19 07:40 98.2 84 20 107/64 97 Plan Attestation Are the patient's medical conditions optimized for surgery? Ishaan Worthington MD Mar 01, 2019 08:54
[2019-03-01] MEDS ORDERED: Lidocaine 1% MPF 10mg/ml 5ml ONE (09:00)
[2019-03-01] MEDS ORDERED: Propofol 200mg/20ml IV ONE (09:00)
[2019-03-01] MEDS ORDERED: LR 1000ml ONE (09:00)
--- NOTE | 2019-03-01 09:12 | Endoscopy Procedure Note ---
Endoscopy Procedure Note General Indication for Procedure: GERD Procedures Performed: EGD Operative Findings/Diagnosis: gastritis Specimen: yes Pt Tolerated Procedure Well: Yes Estimated Blood Loss: none Anesthesia Anesthesiologist: shon Anesthesia: MAC Inserted Devices Implant(s) used?: No GI Core Measures 50 yrs or older w/o bx or poly: Not Applicable 10yrs. F/U recommended: Not Applicable Ishaan Worthington MD Mar 01, 2019 09:12
--- NOTE | 2019-03-01 09:21 | Immediate Post-Op Evaluation ---
Immediate Post-Op Evalulation Immediate Post-Op Evalulation Procedure: EGD Date of Evaluation: Mar 01, 2019 Time of Evaluation: 09:21 IV Fluids: 300 Blood Pressure Systolic: 120 Blood Pressure Diastolic: 69 Pulse Rate: 70 Respiratory Rate: 14 O2 Sat by Pulse Oximetry: 100 Temperature (Fahrenheit): 97.4 Nausea: No Vomiting: No Complications none Patient Status: awake, reacts, patent Hydration Status: adequate Drug: none Marsha Isabel CRNA Mar 01, 2019 09:21
--- NOTE | 2019-03-01 09:39 | Anethesia Preoperative Eval ---
Anesthesia Pre-op PMH/ROS General Date of Evaluation: Mar 01, 2019 Time of Evaluation: 09:00 Anesthesiologist: mukesh ASA Score: ASA 2 Mallampati Score Class I : Soft palate, uvula, fauces, pillars visible Class II: Soft palate, uvula, fauces visible Class III: Soft palate, base of uvula visible Class IV: Only hard plate visible Mallampati Classification: Class III Surgeon: mariana Diagnosis: GERD Surgical Procedure: EGD Anesthesia History: none Allergies: Coded Allergies: AMOXICILLIN (Verified Allergy, Severe, 05/15/17) HIVES NSAIDS (NON-STEROIDAL ANTI-INFLAMMA (Verified Allergy, Severe, "HIVES", ) ALENDRONATE SODIUM (Verified Allergy, Intermediate, "HEART PALPITATION", ) AMPICILLIN (Verified Adverse Reaction, Severe, "GETS YEAST INFECTION", ) SIMVASTATIN (Verified Adverse Reaction, Mild, 05/15/17) shoulder started to hurt Medications: see eMAR Patient NPO?: Yes NPO Date: Mar 01, 2019 NPO Time: 00:01 Past Medical History Cardiovascular: Reports: HTN, CAD Pulmonary: Denies: asthma, COPD, [place], other Gastrointestinal/Genitourinary: Reports: GERD; Denies: CRI, ESRD, other Neurologic/Psychiatric: Denies: dementia, CVA, depression/anxiety, TIA, other Endocrine: Denies: DM, hypothyroidism, steroids, other HEENT: Denies: cataract (L), cataract (R), glaucoma, [place] (L), [place] (R), other Hematology/Immune: Reports: anemia; Denies: DVT, bleeding disorder, other Musculoskeletal/Integumentary: Denies: OA, RA, DJD, DDD, edema, other Other: obesity PSxH Narrative: see chart Anesthesia Pre-op Phys. Exam Physician Exam Last Vital Signs Date Time Temp Pulse Resp B/P (MAP) Pulse Ox O2 Delivery O2 Flow Rate FiO2 03/01/19 09:21 70 14 100 03/01/19 07:49 Room Air 03/01/19 07:40 98.2 107/64 Constitutional: NAD Neurologic: CN 2-12 intact Cardiovascular: RRR Respiratory: CTA Gastrointestinal: S/NT/ND Airway Exam Mallampati Classification 3 Mallampati Score: Class II MO: full Neck: thick TMD: 2fb ROM: full Dentures: no upper, no lower Anesthesia Pre-op A/P Studies Pre-op Studies: EKG - sr Risk Assessment & Plan Assessment: michael merlos /jessica Plan: mac Pre-Antibiotics Drug: Marsha Isabel CRNA Mar 01, 2019 09:39
--- NOTE | 2019-03-01 10:15 | Procedure Note ---
DATE OF PROCEDURE: 03/01/2019 SURGEON: Ishaan Worthington M.D. REFERRING PHYSICIAN: Marita Medina M.D. PROCEDURE: Upper endoscopy with biopsy. ANESTHESIA: Per REDD Isabel. INSTRUMENT: Olympus adult flexible upper endoscope. INDICATION: Chronic GERD and abdominal pain. REASON FOR PROCEDURE: The procedure, risks, benefits, and possible consequences, including hemorrhage, aspiration, perforation and infection, and alternative treatments, were explained to the patient/legal guardian by Dr. Ishaan Worthington and the patient/legal guardian understood and accepted these risks. PROCEDURE IN DETAIL: After informed consent was obtained and the patient was adequately sedated, Olympus upper endoscope was advanced from mouth into the second portion of duodenum, and retroflexion was performed in the stomach. The patient had evidence of diffuse gastritis. Random biopsy from antrum was obtained to rule out H. pylori infection. The rest of the upper endoscopic examination was within normal limits. There was no evidence of any ulcerations, no esophagitis, and no obvious mass. SUMMARY OF FINDINGS: Gastritis, status biopsy. RECOMMENDATIONS: Follow up biopsy results and treat accordingly. I want to thank Dr. Marita Medina for this kind referral. Ishaan Worthington M.D. DR: NAA JOB#: [id number] CC: Marita Medina M.D.; Fax#: [phone]
--- NOTE | 2019-03-01 10:25 | 48 Hour Post Anesthesia Eval ---
Post Anesthesia Evaluation Procedure: EGD Date of Evaluation: Mar 01, 2019 Time of Evaluation: 10:24 Blood Pressure Systolic: 137 0: 97 Pulse Rate: 67 Respiratory Rate: 14 Temperature (Fahrenheit): 97.0 O2 Sat by Pulse Oximetry: 98 Airway: patent Nausea: No Vomiting: No Hydration Status: adequate Cardiopulmonary Status: stable Mental Status/LOC: patient returned to baseline Post-Anesthesia Complications: none Follow-up care needed: N/A Marsha Isabel CRNA Mar 01, 2019 10:25
--- NOTE | 2019-03-01 13:15 | Cardiology Report ---
APPROVED REPORT EKG Measurement Heart [id number] Normal sinus rhythm Normal ECG
== END 2019-03-01 10:20 | disposition home or self-care (01) ==
LOC: GAS 06:55
DX: K21.9 Gastro-esophageal reflux disease without esophagitis (principal); R10.9 Unspecified abdominal pain; Z79.899 Other long term (current) drug therapy; I11.9 Hypertensive heart disease without heart failure; E66.9 Obesity, unspecified; Z68.33 Body mass index [BMI] 33.0-33.9, adult; Z88.6 Allergy status to analgesic agent; Z88.0 Allergy status to penicillin; Z79.82 Long term (current) use of aspirin; Z79.84 Long term (current) use of oral hypoglycemic drugs; K29.50 Unspecified chronic gastritis without bleeding
CPT/HCPCS: 43239; 82962; 93005; J2704; 94003; 94150

== ENCOUNTER 2019-04-09 10:17 | Outpatient (CLI) | payer MEDICARE, OTHER ==
[~2019-04-09 10:17] MED LIST changes: +ATORVASTATIN CA20 MG ORAL; +FARXIGA5 MG PO; +PILOCARPINE HCL5 M1 PO; +VITAMIN D2 PO; +XIFAXAN550 MG ORAL
--- NOTE | 2019-04-09 10:46 | General Progress Note ---
Assessment/Plan Problem List: (1) Biliary and pancreatic ductal dilatation (2) Invasive adenocarcinoma of ascending colon polyp (3) Colon polyps ICD Codes: K63.5 - Colon polyps SNOMED: 62796231 (4) HTN (hypertension) ICD Codes: I10 - HTN (hypertension) SNOMED: 61877286 (5) GERD (gastroesophageal reflux disease) ICD Codes: K21.9 - Gastro-esophageal reflux disease without esophagitis SNOMED: 020868891 (6) Diabetes ICD Codes: E11.9 - Diabetes SNOMED: 16018447 (7) Constipation ICD Codes: K59.00 - Constipation SNOMED: 12366914 (8) Nausea ICD Codes: R11.0 - Nausea SNOMED: 477820643 Assessment/Plan: EGD results reviewed patient is being evaluated at [facility] for Sleeve gastrectomy will fu Subjective ROS Limited/Unobtainable: Yes Allergies: Coded Allergies: AMOXICILLIN (Verified Allergy, Severe, 05/15/17) HIVES NSAIDS (NON-STEROIDAL ANTI-INFLAMMA (Verified Allergy, Severe, "HIVES", ) ALENDRONATE SODIUM (Verified Allergy, Intermediate, "HEART PALPITATION", ) AMPICILLIN (Verified Adverse Reaction, Severe, "GETS YEAST INFECTION", ) SIMVASTATIN (Verified Adverse Reaction, Mild, 05/15/17) shoulder started to hurt Objective General Appearance: alert EENT: normal ENT inspection Neck: supple Cardiovascular: normal rate Respiratory/Chest: lungs clear Abdomen: normal bowel sounds, non tender, soft Extremities: non-tender Ishaan Worthington MD Apr 09, 2019 10:46
== END 2019-04-09 12:17 | disposition home or self-care (01) ==
LOC: PAN 10:17
DX: K63.5 Polyp of colon (principal); I10 Essential (primary) hypertension; K21.9 Gastro-esophageal reflux disease without esophagitis; E11.9 Type 2 diabetes mellitus without complications; K59.00 Constipation, unspecified; R11.0 Nausea; C18.2 Malignant neoplasm of ascending colon; Z88.0 Allergy status to penicillin; Z88.6 Allergy status to analgesic agent; Z88.8 Allergy status to other drugs, medicaments and biological substances

== ENCOUNTER 2019-05-31 09:02 | Day surgery (SDC) | payer MEDICARE, OTHER ==
[2019-05-31] VITALS (9 sets, daily range): BP systolic 97–127; BP diastolic 53–70
[~2019-05-31] VITALS: Ht 175.3 cm; Wt 101.2 kg
[~2019-05-31 09:02] MED LIST changes: +LR 1000ml 1,000 ML IVLG SCH
--- NOTE | 2019-05-31 10:02 | Pre-Procedure Note/Attestation ---
Pre-Procedure Note/Attestation Complete Prior to Procedure Planned Procedure: not applicable Procedure Narrative: colonoscopy Indications for Procedure Pre-Operative Diagnosis: colon CA Attestation I attest that I discussed the nature of the procedure; its benefits; risks and complications; and alternatives (and the risks and benefits of such alternatives ), prior to the procedure, with the patient (or the patient's legal patient services representative). I attest that, if there was a reasonable possibility of needing a blood transfusion, the patient (or the patient's legal patient services representative) was given the [facility] standardized written summary, pursuant to the [place] Blood Safety Act ([place] Health and Safety Code # 1645, as amended). I attest that I re-evaluated the patient just prior to the surgery and that there has been no change in the patient's H&P, except as documented below: Ishaan Worthington MD May 31, 2019 10:02
--- NOTE | 2019-05-31 10:03 | Short Stay Surgery H&P ---
History of Present Illness History of Present Illness Chief Complaint h/o colon CA HPI Chago Avalos is a 79 year old female who was admitted on for Colon Cancer Patient History Allergies: Coded Allergies: AMOXICILLIN (Verified Allergy, Severe, 05/15/17) HIVES NSAIDS (NON-STEROIDAL ANTI-INFLAMMA (Verified Allergy, Severe, "HIVES", ) ALENDRONATE SODIUM (Verified Allergy, Intermediate, "HEART PALPITATION", ) AMPICILLIN (Verified Adverse Reaction, Severe, "GETS YEAST INFECTION", ) SIMVASTATIN (Verified Adverse Reaction, Mild, 05/15/17) shoulder started to hurt PAST MEDICAL HISTORY: (1) Biliary and pancreatic ductal dilatation (2) Invasive adenocarcinoma of ascending colon polyp (3) Colon polyps (4) HTN (hypertension) (5) GERD (gastroesophageal reflux disease) (6) Diabetes (7) Constipation (8) SIBO Medication History Scheduled Aspirin* (Aspir-Low*), 81 MG PO DAILY, (Reported) Atorvastatin Calcium* (Atorvastatin Calcium*), 20 MG ORAL BEDTIME, (Reported) Benazepril/Hydrochlorothiazide 20-12.5 Mg Tab (Benazepril-Hctz 20-12.5 Mg Tab), 1 TAB PO DAILY, (Reported) Dapagliflozin Propanediol (Farxiga), 5 MG PO DA, (Reported) Dulaglutide (Trulicity), Unknown Dose SQ QWEEK, (Reported) Duloxetine Hcl* (Cymbalta*), 30 MG ORAL BID, (Reported) Fentanyl 25MCG Patch* (Fentanyl 25MCG Patch*), 1 PATCH TDERMAL EVERY 72 HOURS, ( Reported) Gabapentin* (Gabapentin*), 600 MG ORAL THREE TIMES A DAY, (Reported) Insulin Aspart* (Novolog*), 15 UNIT SUBQ TID, (Reported) Insulin Glargine (Lantus), 40 UNIT SUBQ DAILY, (Reported) Linaclotide (Linzess), 145 MCG PO NE, (Reported) Metformin Hcl* (Metformin Hcl*), 500 MG ORAL TWICE A DAY, (Reported) Mirabegron (Myrbetriq), Unknown Dose PO DAILY, (Reported) Omeprazole (Omeprazole), 20 MG ORAL BID, (Reported) Pilocarpine Hcl (Pilocarpine Hcl), 10 MG PO DA, (Reported) Polyethylene Glycol 3350* (Miralax*), 17 GM ORAL , (Reported) Rifaximin* (Xifaxan*), 550 MG ORAL TWICE A DAY, (Reported) [Vitamin D2], 50,000 PO ONCE A WEEK, (Reported) Scheduled PRN Hydrocodone Bit/Acetaminophen 10-325* ([place] 10-325*), 1 TAB PO Q6 PRN, ( Reported) Ondansetron Odt* (Zofran Odt*), 8 MG ORAL Q12HR PRN for Nausea & Vomiting, ( Reported) Review of Systems Cardiovascular: Reports: no symptoms Respiratory: Reports: no symptoms Skeletal: Reports: no symptoms Gastrointestinal: Reports: no symptoms Genitourinary: Reports: no symptoms Neurologic: Reports: no symptoms Endocrine: Reports: no symptoms Hematologic: Reports: no symptoms Physical Exam Skin: normal HENT: normal Heart: normal Lungs: normal Abdomen: normal Extremities: normal Plan Plan of Care colonoscopy Attestation Are the patient's medical conditions optimized for surgery? Attestation Response: yes Ishaan Worthington MD May 31, 2019 10:03
[2019-05-31] MEDS ORDERED: LR 1000ml ONE (10:56)
[2019-05-31] MEDS ORDERED: Lidocaine 1% MPF 10mg/ml 5ml ONE (10:56)
[2019-05-31] MEDS ORDERED: Propofol 200mg/20ml IV ONE (10:56)
--- NOTE | 2019-05-31 11:36 | Endoscopy Procedure Note ---
Endoscopy Procedure Note General Indication for Procedure: h/o colon cancer Procedures Performed: colonoscopy Operative Findings/Diagnosis: diverticulosis Specimen: none Pt Tolerated Procedure Well: Yes Estimated Blood Loss: none Anesthesia Anesthesiologist: shon Anesthesia: MAC Inserted Devices Implant(s) used?: No Quality Quality of Bowel Preparation: Good Did scope reach the cecum?: Yes Was there any complications?: No GI Core Measures 50 yrs or older w/o bx or poly: No 10yrs. F/U recommended: Yes If not recommended, why?: Above average risk 18 years or older w/prev. colo: Yes <3yrs. since last colonoscopy: No Ishaan Worthington MD May 31, 2019 11:36
--- NOTE | 2019-05-31 11:44 | Anethesia Preoperative Eval ---
Anesthesia Pre-op PMH/ROS General Date of Evaluation: May 31, 2019 Time of Evaluation: 10:50 Anesthesiologist: mukesh ASA Score: ASA 2 Mallampati Score Class I : Soft palate, uvula, fauces, pillars visible Class II: Soft palate, uvula, fauces visible Class III: Soft palate, base of uvula visible Class IV: Only hard plate visible Mallampati Classification: Class III Surgeon: mariana Diagnosis: colon screening Surgical Procedure: colonoscopy Anesthesia History: none Family History: no anesthesia problems Allergies: Coded Allergies: AMOXICILLIN (Verified Allergy, Severe, 05/15/17) HIVES NSAIDS (NON-STEROIDAL ANTI-INFLAMMA (Verified Allergy, Severe, "HIVES", ) ALENDRONATE SODIUM (Verified Allergy, Intermediate, "HEART PALPITATION", ) AMPICILLIN (Verified Adverse Reaction, Severe, "GETS YEAST INFECTION", ) SIMVASTATIN (Verified Adverse Reaction, Mild, 05/15/17) shoulder started to hurt Medications: see eMAR Patient NPO?: Yes NPO Date: May 31, 2019 NPO Time: 00:01 Past Medical History Cardiovascular: Reports: HTN; Denies: CAD, [place], valve dz, arrhythmia, other Gastrointestinal/Genitourinary: Reports: GERD, other - hx of polyp; Denies: CRI, ESRD Neurologic/Psychiatric: Denies: dementia, CVA, depression/anxiety, TIA, other Endocrine: Reports: DM HEENT: Denies: cataract (L), cataract (R), glaucoma, [place] (L), [place] (R), other Hematology/Immune: Denies: anemia, DVT, bleeding disorder, other Musculoskeletal/Integumentary: Denies: OA, RA, DJD, DDD, edema, other Other: obesity PSxH Narrative: colonoscopy Anesthesia Pre-op Phys. Exam Physician Exam Last Vital Signs Date Time Temp Pulse Resp B/P (MAP) Pulse Ox O2 Delivery O2 Flow Rate FiO2 05/31/19 10:41 Room Air 05/31/19 10:30 98.0 85 18 124/56 95 Constitutional: NAD Neurologic: CN 2-12 intact Cardiovascular: RRR Respiratory: CTA Gastrointestinal: S/NT/ND Airway Exam Mallampati Classification 2 Mallampati Score: Class II MO: full Dentures: no upper, no lower Anesthesia Pre-op A/P Studies Pre-op Studies: EKG - SR Risk Assessment & Plan Assessment: denies changes in health Plan: mac Status Change Before Surgery: No Pre-Antibiotics Drug: declined Marsha Isabel CRNA May 31, 2019 11:44
--- NOTE | 2019-05-31 11:44 | Immediate Post-Op Evaluation ---
Immediate Post-Op Evalulation Immediate Post-Op Evalulation Procedure: colonoscopy Date of Evaluation: May 31, 2019 Time of Evaluation: 11:44 IV Fluids: 500 Blood Pressure Systolic: 97 Blood Pressure Diastolic: 50 Pulse Rate: 75 Respiratory Rate: 14 O2 Sat by Pulse Oximetry: 99 Temperature (Fahrenheit): 98.7 Nausea: No Vomiting: No Patient Status: awake, reacts, patent Hydration Status: adequate Drug: none MiguelriMarsha leblanc CRNA May 31, 2019 11:44
--- NOTE | 2019-05-31 13:30 | 48 Hour Post Anesthesia Eval ---
Post Anesthesia Evaluation Procedure: colonoscopy Date of Evaluation: May 31, 2019 Time of Evaluation: 13:30 Blood Pressure Systolic: 127 0: 70 Pulse Rate: 61 Respiratory Rate: 14 O2 Sat by Pulse Oximetry: 98 Airway: patent Nausea: No Vomiting: No Hydration Status: adequate Cardiopulmonary Status: stable Mental Status/LOC: patient returned to baseline Post-Anesthesia Complications: none Follow-up care needed: N/A Marsha Isabel CRNA May 31, 2019 13:30
--- NOTE | 2019-05-31 17:30 | Procedure Note ---
DATE OF PROCEDURE: 05/31/2019 SURGEON: Ishaan Worthington M.D. PROCEDURE: Colonoscopy. ANESTHESIA: Per COATER ASSOCIATE, Marsha Isabel. INSTRUMENT: Olympus adult flexible colonoscope. INDICATION: History of colonic cancer, here for surveillance. REASON FOR PROCEDURE: The procedure, risks, benefits, and possible consequences, including hemorrhage, aspiration, perforation and infection, and alternative treatments, were explained to the patient/legal guardian by Dr. Ishaan Worthington and the patient/legal guardian understood and accepted these risks. DESCRIPTION OF PROCEDURE: After informed consent was obtained and the patient was adequately sedated, first rectal exam was performed, which showed positive for internal hemorrhoids. Then, the scope was advanced from the rectum into anastomosis. Quality of prep was good. The patient had no further polyp seen in this colonoscopy examination. The patient has scattered diverticulosis in the left colon. The patient had one lipoma in the sigmoid colon, measured roughly about 1 cm. Retroflexion of rectum was performed, which showed evidence of medium-sized internal hemorrhoids. SUMMARY OF FINDINGS: 1. History of partial colonic resection. 2. Diverticulosis. 3. Sigmoid lipoma. 4. Internal hemorrhoids. RECOMMENDATIONS: The patient at this time has no evidence of recurrent malignancy and no any polyps. The patient to come back to office for further followup and for future colonoscopy plans. I want to thank Dr. Marita Medina for this kind referral. Ishaan Worthington M.D. DR: FAHEEM JOB#: [id number] CC: Marita Medina M.D.; Fax#: [phone]
== END 2019-05-31 13:00 | disposition home or self-care (01) ==
LOC: GAS 09:02
DX: C18.9 Malignant neoplasm of colon, unspecified (principal); K57.90 Diverticulosis of intestine, part unspecified, without perforation or abscess without bleeding; Z85.038 Personal history of other malignant neoplasm of large intestine; Z90.49 Acquired absence of other specified parts of digestive tract; D17.79 Benign lipomatous neoplasm of other sites; K64.8 Other hemorrhoids; I10 Essential (primary) hypertension; K21.9 Gastro-esophageal reflux disease without esophagitis; E11.9 Type 2 diabetes mellitus without complications; Z79.899 Other long term (current) drug therapy; Z79.82 Long term (current) use of aspirin; Z88.0 Allergy status to penicillin; Z88.8 Allergy status to other drugs, medicaments and biological substances; Z86.010 Personal history of colon polyps; E66.9 Obesity, unspecified; Z68.32 Body mass index [BMI] 32.0-32.9, adult; Z79.84 Long term (current) use of oral hypoglycemic drugs
CPT/HCPCS: 45378; J2704; 94003; 94150

== ENCOUNTER 2019-06-24 13:07 | Outpatient (CLI) | payer MEDICARE, OTHER ==
[~2019-06-24 13:07] MED LIST changes: -LR 1000ml 1,000 ML IVLG SCH
--- NOTE | 2019-06-24 13:13 | General Progress Note ---
Assessment/Plan Problem List: (1) Biliary and pancreatic ductal dilatation (2) Invasive adenocarcinoma of ascending colon polyp (3) SIBO (4) Colon polyps ICD Codes: K63.5 - Colon polyps SNOMED: 85266989 (5) HTN (hypertension) ICD Codes: I10 - HTN (hypertension) SNOMED: 49941019 (6) GERD (gastroesophageal reflux disease) ICD Codes: K21.9 - Gastro-esophageal reflux disease without esophagitis SNOMED: 175566362 (7) Diabetes ICD Codes: E11.9 - Diabetes SNOMED: 52797435 (8) Constipation ICD Codes: K59.00 - Constipation SNOMED: 83961158 (9) Nausea ICD Codes: R11.0 - Nausea SNOMED: 816224886 (10) Hypotension ICD Codes: I95.9 - Hypotension, unspecified SNOMED: 23800092 Assessment/Plan: SUMMARY OF FINDINGS: 1. History of partial colonic resection. 2. Diverticulosis. 3. Sigmoid lipoma. 4. Internal hemorrhoids. rtc 3 months Subjective ROS Limited/Unobtainable: No Allergies: Coded Allergies: AMOXICILLIN (Verified Allergy, Severe, 05/15/17) HIVES NSAIDS (NON-STEROIDAL ANTI-INFLAMMA (Verified Allergy, Severe, "HIVES", ) ALENDRONATE SODIUM (Verified Allergy, Intermediate, "HEART PALPITATION", ) AMPICILLIN (Verified Adverse Reaction, Severe, "GETS YEAST INFECTION", ) SIMVASTATIN (Verified Adverse Reaction, Mild, 05/15/17) shoulder started to hurt Objective General Appearance: alert EENT: normal ENT inspection Neck: supple Cardiovascular: normal rate Respiratory/Chest: decreased breath sounds Abdomen: normal bowel sounds, non tender, soft Extremities: non-tender Ishaan Worthington MD Jun 24, 2019 13:13
== END 2019-06-24 15:07 | disposition home or self-care (01) ==
LOC: PAN 13:07
DX: K63.5 Polyp of colon (principal); I10 Essential (primary) hypertension; K21.9 Gastro-esophageal reflux disease without esophagitis; E11.9 Type 2 diabetes mellitus without complications; K59.00 Constipation, unspecified; R11.0 Nausea; I95.9 Hypotension, unspecified; C18.2 Malignant neoplasm of ascending colon; K56.609 Unspecified intestinal obstruction, unspecified as to partial versus complete obstruction; Z90.49 Acquired absence of other specified parts of digestive tract; Z88.6 Allergy status to analgesic agent; Z88.0 Allergy status to penicillin; K64.8 Other hemorrhoids

== ENCOUNTER 2020-03-18 06:42 | Day surgery (SDC) | payer MEDICARE, OTHER ==
--- NOTE | 2020-03-17 14:06 | Pre-Procedure Note/Attestation ---
Pre-Procedure Note/Attestation Complete Prior to Procedure Planned Procedure: left - Removal of cataract and placement of intraocular lens , left eye Procedure Narrative: Removal of cataract and placement of intraocular lens, left eye Indications for Procedure Pre-Operative Diagnosis: Cataract, combined, left eye Attestation I attest that I discussed the nature of the procedure; its benefits; risks and complications; and alternatives (and the risks and benefits of such alternatives ), prior to the procedure, with the patient (or the patient's legal sales representative marine [employer]). I attest that, if there was a reasonable possibility of needing a blood transfusion, the patient (or the patient's legal sales representative [employer]) was given the [place] Department [employer] standardized written summary, pursuant to the [place] Blood Safety Act ([place] Health and Safety Code # 1645, as amended). I attest that I re-evaluated the patient just prior to the surgery and that there has been no change in the patient's H&P, except as documented below: Rex To MD Mar 17, 2020 14:06
[~2020-03-18] VITALS: Ht 175.3 cm; Wt 102.5 kg
[2020-03-18] VITALS (9 sets, daily range): BP systolic 113–129; BP diastolic 63–79
[2020-03-18] MEDS ORDERED: Cyclopentolate 1% Opth Sol 2ml ONE (07:06)
[2020-03-18] MEDS ORDERED: Vigamox Opth Soln 3ml ONE (07:06)
[2020-03-18] MEDS ORDERED: Ciprofloxacin Opth Soln 5ml ONE (07:06)
[2020-03-18] MEDS ORDERED: Lidocaine 4% Amp 5ml ONE (07:32)
[2020-03-18] MEDS ORDERED: Lidocaine 1% MPF 10mg/ml 5ml ONE ×2 (07:32→08:30)
[2020-03-18] MEDS ORDERED: EPINEPHrine 1mg/1ml Amp ONE (07:32)
[2020-03-18] MEDS ORDERED: Fluorescein Strips ONE (07:33)
[2020-03-18] MEDS ORDERED: prednisoLONE acetate 1% Opth Susp 1ml ONE (07:33)
[2020-03-18] MEDS ORDERED: Maxitrol Opth Oint 3.5gm ONE (07:33)
[2020-03-18] MEDS ORDERED: timoloL maleate 0.5% Op Soln 2.5ml ONE (07:33)
[2020-03-18] MEDS ORDERED: Carbachol 0.01% Op Soln 1.5ml vial ONE (07:33)
[2020-03-18] MEDS ORDERED: Sodium Hyaluronate 10 mg/ml 0.85ml ONE (07:34)
[2020-03-18] MEDS ORDERED: BSS 15ml BTL ONE (07:34)
[2020-03-18] MEDS ORDERED: BSS 500ml btl ONE (07:34)
[2020-03-18] MEDS ORDERED: Povidone-Iodine 5% opth solution ONE (07:34)
[2020-03-18] MEDS: Cyclopentolate 1% Opth Sol 2ml LEFT EYE SCH ×3 (07:45→08:06)
[2020-03-18] MEDS: Vigamox Opth Soln 3ml LEFT EYE SCH ×3 (07:45→08:06)
[2020-03-18] MEDS: Tropicamide 1% Opth 15ml Soln LEFT EYE SCH ×3 (07:45→08:06)
[2020-03-18] MEDS: Tobradex Opth Susp 2.5ml LEFT EYE SCH ×3 (07:46→08:06)
[2020-03-18] MEDS: Ciprofloxacin Opth Soln 5ml LEFT EYE SCH ×3 (07:46→08:07)
[2020-03-18] MEDS: Akten 3.5% 1ml Btl LEFT EYE SCH ×3 (07:46→08:06)
[2020-03-18] MEDS: Phenylephrine 10% Opth Soln 5ml LEFT EYE SCH ×3 (07:46→08:06)
[2020-03-18] MEDS ORDERED: Sterile Water Irrig 1000ml IRRIG ONE (08:30)
[2020-03-18] MEDS ORDERED: NS Irrig 1000ml ONE (08:30)
[2020-03-18] MEDS ORDERED: LR 1000ml ONE (08:30)
[2020-03-18] MEDS ORDERED: Ketorolac 30mg Inj ONE (08:37)
[2020-03-18] MEDS ORDERED: Midazolam 2mg/2ml Inj ONE (08:37)
[2020-03-18] MEDS ORDERED: Ketamine 500mg/10ml vial ONE (08:38)
[2020-03-18] MEDS ORDERED: Tetracaine 0.5% Opth 4ml Soln ONE (08:41)
[2020-03-18] MEDS ORDERED: LR 1000ml 1,000 ML IVLG SCH (08:56)
[2020-03-18] MEDS ORDERED: HYDROcodone/Acetamin 7.5/325 tab ORAL PRN (09:00)
[2020-03-18] MEDS ORDERED: Metoclopramide 10mg/2ml Inj IVP PRN (09:00)
[2020-03-18] MEDS ORDERED: Meperidine 25mg/0.5ml Inj (FOR RIGORS ONLY) IV PRN (09:00)
[2020-03-18] MEDS ORDERED: fentaNYL 100 mcg/2 mL IV PRN (09:00)
[2020-03-18] MEDS ORDERED: oxyCODONE HCL/Acetaminophen 5/325mg ORAL PRN (09:00)
[2020-03-18] MEDS ORDERED: Atropine Sulfate 0.4mg/ml inj IVP PRN (09:00)
[2020-03-18] MEDS ORDERED: Midazolam 2mg/2ml Inj IVP PRN (09:00)
[2020-03-18] MEDS ORDERED: LORazepam Inj 2mg/ml 1ml IV PRN (09:00)
[2020-03-18] MEDS ORDERED: Hydromorphone 0.5mg/0.5ml inj IVP PRN (09:00)
[2020-03-18] MEDS ORDERED: Labetalol 5mg/ml 20ml vial IV PRN (09:00)
[2020-03-18] MEDS ORDERED: DiphenhydrAMINE 50mg/ml Inj IVP PRN (09:00)
[2020-03-18] MEDS ORDERED: HYDROcodone/Acetamin 5/325 tab ORAL PRN (09:00)
--- NOTE | 2020-03-18 09:00 | 48 Hour Post Anesthesia Eval ---
Post Anesthesia Evaluation Procedure: Cat Ext IOL OS Date of Evaluation: Mar 18, 2020 Time of Evaluation: 12:12 Blood Pressure Systolic: 122 0: 64 Pulse Rate: 67 Respiratory Rate: 18 Temperature (Fahrenheit): 97.6 Airway: patent Nausea: No Vomiting: No Pain Intensity: 1 Hydration Status: adequate Cardiopulmonary Status: Stable Mental Status/LOC: patient returned to baseline Follow-up Care/Observations: 0 Post-Anesthesia Complications: 0 Follow-up care needed: ready to discharge Roger Cerda MD Mar 18, 2020 09:00
--- NOTE | 2020-03-18 09:00 | Immediate Post-Op Evaluation ---
Immediate Post-Op Evalulation Immediate Post-Op Evalulation Procedure: Cat Ext IOL OS Date of Evaluation: Mar 18, 2020 Time of Evaluation: 09:57 IV Fluids: 900 LR Blood Products: 0 Estimated Blood Loss: 1 Urinary Output: 0 Blood Pressure Systolic: 122 Blood Pressure Diastolic: 68 Pulse Rate: 65 Respiratory Rate: 16 O2 Sat by Pulse Oximetry: 99 Temperature (Fahrenheit): 97.2 Pain Score (1-10): 1 Nausea: No Vomiting: No Complications 0 Patient Status: awake, reacts, patent, none Hydration Status: adequate Roger Cerda MD Mar 18, 2020 09:00
--- NOTE | 2020-03-18 09:04 | Anethesia Preoperative Eval ---
Anesthesia Pre-op PMH/ROS General Date of Evaluation: Mar 18, 2020 Time of Evaluation: 08:27 Anesthesiologist: Prashant ASA Score: ASA 3 Mallampati Score Class I : Soft palate, uvula, fauces, pillars visible Class II: Soft palate, uvula, fauces visible Class III: Soft palate, base of uvula visible Class IV: Only hard plate visible Mallampati Classification: Class III Surgeon: Zuleika Diagnosis: Cataract OS Surgical Procedure: Cat Ext IOL OS Anesthesia History: none Family History: no anesthesia problems Allergies: Coded Allergies: AMOXICILLIN (Verified Allergy, Severe, 05/15/17) HIVES NSAIDS (NON-STEROIDAL ANTI-INFLAMMA (Verified Allergy, Severe, "HIVES", ) ALENDRONATE SODIUM (Verified Allergy, Intermediate, "HEART PALPITATION", ) AMPICILLIN (Verified Adverse Reaction, Severe, "GETS YEAST INFECTION", ) SIMVASTATIN (Verified Adverse Reaction, Mild, 05/15/17) shoulder started to hurt Medications: see eMAR Patient NPO?: Yes Past Medical History Cardiovascular: Reports: HTN, other - HL Gastrointestinal/Genitourinary: Reports: GERD Endocrine: Reports: DM, hypothyroidism HEENT: Reports: cataract (L), cataract (R) Hematology/Immune: Reports: anemia, other - Colon, Bladder CA PSxH Narrative: R Colectomy, TURBT, Cholecystectomy, TVH, R Breast SX Anesthesia Pre-op Phys. Exam Physician Exam Last Vital Signs Date Time Temp Pulse Resp B/P (MAP) Pulse Ox O2 Delivery O2 Flow Rate FiO2 03/18/20 07:49 97.0 74 18 115/79 96 Room Air Constitutional: NAD Neurologic: CN 2-12 intact Cardiovascular: RRR Respiratory: CTA Gastrointestinal: S/NT/ND Airway Exam Mallampati Score: Class III MO: limited ROM: limited Teeth: missing, intact Anesthesia Pre-op A/P Labs Chemistry Test 03/18/20 08:02 POC Whole Blood Glucose 120 MG/DL (74-106) H Risk Assessment & Plan Assessment: ASA 3 Plan: TIVA Status Change Before Surgery: No Roger Cerda MD Mar 18, 2020 09:04
--- NOTE | 2020-03-18 09:48 | Brief Operative Note ---
Immediate Post Operative Note Operative Note Pre-op Diagnosis: Cataract, combined, left eye Procedure: Phaco PC IOL OS Post-op Diagnosis: same as pre-op Surgeon: Sim To MD MS Sql Analyst: none Anesthesiologist: Dr Cerda Anesthesia: local, MAC Specimen: none Complications: none Fluids: see chart Implant(s) used?: Yes - reyna [id number] 23.5 Rex To MD Mar 18, 2020 09:48
--- NOTE | 2020-03-20 07:45 | Operative Note - Dictated ---
DATE OF OPERATION: 03/18/2020 SURGEON: Rex To MD CONTROL SYSTEMS DEVELOPER SURGEON: None. ANESTHESIOLOGIST: Roger Cerda MD ANESTHESIA: Local/standby/monitored anesthesia care. PREOPERATIVE DIAGNOSIS: Cataract, combined, left eye. POSTOPERATIVE DIAGNOSIS: Cataract, combined, left eye. PROCEDURES: 1. Phacoemulsification of cataract, left eye. 2. Placement of posterior chamber intraocular lens, left eye (model Parry, [id number], power 23.5). SPECIMENS: None. COMPLICATIONS: None. INDICATIONS FOR SURGERY: The patient has had the painless progressive decrease in visual acuity in the left eye secondary to cataract. The patient understands the risks of surgery including infection, bleeding, need for further surgery, loss of vision, no improvement in vision, loss of life, glaucoma, retinal detachment, understands these risks and elects to proceed with surgery. FINDINGS: The patient had a +3 nuclear cataract as well as a +2 cortical cataract in one area from approximately 6 o'clock to 8 o'clock. There were very dense cortical and nuclear cataracts. During the procedure, there was a rent in the anterior capsule over this area, so this may have had significant trauma to this area in the past. OPERATIVE NOTE: After informed consent was obtained, the patient was brought into the operating room and placed in supine position. Cardiac and respiratory monitors were attached. A time-out was performed and all criteria were met and everyone in the room agreed. The left eye was then draped and prepped in sterile manner for ocular surgery. A lid speculum was placed in the eye. Lidocaine 1% preservative-free was injected at the approximate 2:30 limbus. A conjunctival peritomy from approximately 2 o'clock to 3 o'clock was made and dissected posteriorly. Hemostasis was maintained with bipolar cautery. A 2.6 mm limbal incision was made centered at approximately 2:30 and dissected anteriorly. Paracentesis was made at approximately 5 o'clock and Shugarcaine was injected into the anterior chamber followed by Cheyanne. The anterior chamber was then entered using a 2.6 mm keratome through the limbal incision. An anterior capsulorrhexis was performed. It was obvious that the dense area of the cataract was more to the capsule, but the capsulotomy was completed without difficulty. Hydrodissection and hydrodelineation of the lens was then performed. It was noted that at that area over the dense anterior cataract at approximately 7 o'clock, she had an anterior rent that occurred posteriorly. The lens was then phacoemulsified using divide and conquer four-quadrant technique. Residual cortical material was then aspirated. The capsule did remain intact. The lens was taken from its package, placed into the cartridge, and the tip of the cartridge was placed through the limbal incision. The lens was injected into the capsular bag after put in place. Both haptics and the optic were in the capsular bag. Healon was aspirated from the anterior chamber and capsular bag. Miostat was injected into the anterior chamber. One 10-0 nylon interrupted suture was then placed through the limbal incision. The knot was rotated and buried. The lens was then examined again and it was noted that the optic and both haptics were in the capsular bag. The rent more or less anteriorly did not pass the equator. The lid speculum and drapes were removed from the eye and the lens was examined one more time and it was noted to have the optic and both haptics in the capsular bag. Drops of TobraDex and gentamicin were applied to the eye, followed by Maxitrol ointment and then a shield. The patient tolerated the procedure well and left the operating room in stable condition. Rex To M.D. DR: OLIVIA JOB#: [id number] CC:
== END 2020-03-18 11:00 | disposition home or self-care (01) ==
LOC: SUR 06:42
DX: H25.12 Age-related nuclear cataract, left eye (principal); H25.012 Cortical age-related cataract, left eye; I10 Essential (primary) hypertension; K21.9 Gastro-esophageal reflux disease without esophagitis; E11.9 Type 2 diabetes mellitus without complications; E03.9 Hypothyroidism, unspecified; Z90.49 Acquired absence of other specified parts of digestive tract; Z85.038 Personal history of other malignant neoplasm of large intestine; Z85.51 Personal history of malignant neoplasm of bladder; Z88.0 Allergy status to penicillin; Z88.6 Allergy status to analgesic agent
CPT/HCPCS: 66984; 82962; 94003; J0171; J1100; J2250; J2704; J3490; J7120; U0002; V2632; 94150

== ENCOUNTER 2020-05-11 12:08 | Outpatient (CLI) | payer MEDICARE, OTHER ==
[2020-05-11 12:24] VITALS: BP 127/69
== END 2020-05-11 14:08 | disposition home or self-care (01) ==
LOC: PAN 12:08
DX: C18.9 Malignant neoplasm of colon, unspecified (principal)
CPT/HCPCS: 99212